=== PATIENT | female | born 1990 | race Caucasian/White ===

== ENCOUNTER 2016-11-03 16:37 | Emergency (ER) | payer SELFPAY ==
[~2016-11-03] VITALS: Ht 149.9 cm; Wt 91.4 kg
[~2016-11-03 16:37] MED LIST: ALBUTEROL17 GM IH; CLEOCIN300 MG PO; CLINDAMYCIN HC300 MG PO; FLEXERIL10 MG PO; FLONASE16 G1 BOTH NARES; FORTAMET500 M1 PO; IBUPROFEN600 MG PO; MOTRIN600 MG PO; MUCINEX D ER T1 EACH PO; NAPROSYN500 MG PO; NORCO 5/3251 TABLET PO; PREDNISONE50 MG PO; TRAMADOL HCL50 MG PO; ZOFRAN4 MG PO
[2016-11-03 18:42] LABS: INTERNAL CONTROL VALID? YES
[2016-11-03 18:42] LABS: ADD MIUA? YES; BILIRUBIN NEGATIVE; BLOOD MODERATE; COLOR YELLOW ((YELLOW)); GLUCOSE (STRIP) NEGATIVE; KETONES NEGATIVE; LEUKOCYTES NEGATIVE; NITRITE NEGATIVE; PROTEIN (STRIP) NEGATIVE; SPECIFIC GRAVITY 1.017 (1.000-1.030); UROBILINOGEN 0.2 MG/DL (0.2-1.0)
[2016-11-03 18:47] LABS: BACTERIA RARE /HPF; EPITHELIAL CELLS RARE /HPF; MUCUS TRACE /LPF; RED BLOOD CELLS 0-5 /HPF (0-5); WHITE BLOOD CELLS 0-5 /HPF (0-5)
[2016-11-03 20:13] VITALS: BP 162/111
== END 2016-11-03 20:14 | disposition home or self-care (01) ==
LOC: EME 16:37
PROVIDERS: Physician Assistant
DX: K59.00 Constipation, unspecified (principal); M54.5 Low back pain; Z87.442 Personal history of urinary calculi; J45.909 Unspecified asthma, uncomplicated; Z88.0 Allergy status to penicillin
CPT/HCPCS: 74000; 81003; 84703; 99281; 99284

== ENCOUNTER → 2016-11-13 11:38 | Emergency (ER) | payer SELFPAY ==
[~2016-11-13] VITALS: Ht 149.9 cm; Wt 91.6 kg
[2016-11-13 12:29] VITALS: BP 135/107
== END | disposition left against medical advice (07) ==
LOC: EME 11:38
DX: M54.9 Dorsalgia, unspecified (principal); Z53.21 Procedure and treatment not carried out due to patient leaving prior to being seen by health care provider

== ENCOUNTER 2017-12-05 22:47 | Emergency (ER) | payer SELFPAY ==
[~2017-12-05] VITALS: Ht 152.4 cm; Wt 93.1 kg
[2017-12-05 23:40] LABS: HEMATOCRIT 33.3 % (36.0-46.0); HEMOGLOBIN 11.5 G/DL (11.9-15.5); MCH 29.4 PG (29.0-34.0); MCHC 34.5 G/DL (30.0-36.0); MCV 85.2 FL (83-99); PLATELET COUNT 397 K/uL (156-360); RBC DIS.WIDTH-CV 12.7 % (11.8-14.6); RBC DIS.WIDTH-SD 38.8 % (39-53); RED BLOOD COUNT 3.91 M/uL (3.80-5.20); WHITE BLOOD COUNT 8.8 K/uL (4.1-10.2)
[2017-12-06 00:41] VITALS: BP 123/80
== END 2017-12-06 00:41 | disposition home or self-care (01) ==
LOC: EME 22:47
DX: N92.1 Excessive and frequent menstruation with irregular cycle (principal); I10 Essential (primary) hypertension; J45.909 Unspecified asthma, uncomplicated; F41.9 Anxiety disorder, unspecified; Z87.442 Personal history of urinary calculi; Z90.49 Acquired absence of other specified parts of digestive tract; Z88.7 Allergy status to serum and vaccine; Z88.2 Allergy status to sulfonamides; Z88.0 Allergy status to penicillin
CPT/HCPCS: 81003; 84702; 85027; 99281; 99284; J1885